=== PATIENT | female | born 1950 | race Two or more races ===

== ENCOUNTER 2019-05-11 17:20 | Emergency (ER) | payer OTHER ==
[~2019-05-11] VITALS: Ht 157.5 cm; Wt 97.5 kg
[~2019-05-11 17:20] MED LIST: COZAAR100 MG; PROVENTIL17 G1; SYNTHROID50 MCG
[2019-05-11] MEDS ORDERED: DOLOGEN CAPLET1 EACH PO (19:58)
[2019-05-11] MEDS ORDERED: XOFLUZA40 MG PO (19:58)
[2019-05-11] MEDS ORDERED: DULOXETINE (20:00)
[2019-05-11] MEDS ORDERED: FORTAMET500 MG (20:01)
[2019-05-11] MEDS ORDERED: PREDNISONE 20 MG (20:01)
[2019-05-11] MEDS ORDERED: FOLIC ACID1 MG (20:02)
[2019-05-11] MEDS ORDERED: MONTELUKAST 10 MG (20:02)
[2019-05-11] MEDS ORDERED: BUPROPION XL 300 MG (20:03)
[2019-05-11] MEDS ORDERED: OFEV150 MG (20:03)
== END 2019-05-11 20:07 | disposition home or self-care (01) ==
LOC: ER 17:20
DX: J11.1 Influenza due to unidentified influenza virus with other respiratory manifestations (principal)